=== PATIENT | female | born 1930 | race Caucasian/White ===

== ENCOUNTER 2017-03-06 06:15 | Day surgery (SDC) | payer MEDICARE, BC ==
[~2017-03-06] VITALS: Ht 165.1 cm; Wt 57.7 kg
[2017-03-06] VITALS (8 sets, daily range): BP systolic 118–193; BP diastolic 40–68; PULSE 66–80; TEMP 97.6–98.1
[~2017-03-06 06:15] MED LIST: CALCIUM600 M1 PO; CELEBREX 1100 MG/CAP PO; COUMADIN 5MG5 MG/TAB PO; DAILY VITAMIN1 TAB PO; DULCOLAX S10 MG/SUPP RC; FERROUS SU325 MG/TAB PO; FOLIC ACID 11 MG/TA1 PO; LOPRESSOR 550 MG/TAB PO; LOVENOX 4040 MG/0.4 SQ; MAALOX MAX + ANT1 ML PO; METHOTREXA50 MG/2 ML; METHOTREXATE50/2; MILK OF MA400 MG/52 PO; MIRALAX PA17 GM/Dose PO; NITROSTAT0.4 MG/TAB SL; NORCO 325 MG-101 TAB PO; NORCO 325 MG-7.1 TAB PO; ORENCIA125 MG/ML SC; ORENCIA250 MG IV; PRINIVIL20 MG PO; PROTONIX 40MG T40 MG PO; PROTONIX I40 MG/VIAL IV; REMICADE V100 MG/VIA; TOPROL XL 25MG25 MG PO; TYLENOL 325MG325 MG PO; ULTRAM 50MG TAB50 MG PO; XARELTO20 MG PO; ZESTRIL 5MG5 MG PO; ZOFRAN 4MG T4 MG/TAB PO; ZOFRAN INJ4 MG/2 ML IV
[2017-03-06] MEDS ORDERED: OTREXUP10 MG/0.4 SQ (07:10)
[2017-03-06] MEDS ORDERED: PRINIVIL10 MG PO (07:39)
[2017-03-06] MEDS ORDERED: PHENERGAN 25 TA25 MG PO (12:41)
[2017-03-06] MEDS ORDERED: NORCO 325 MG-7.1 TAB PO (12:41)
[2017-03-06] MEDS ORDERED: CEPHALEXIN500 M1 PO (12:42)
== END 2017-03-06 14:15 | disposition home or self-care (01) ==
LOC: SDCO 06:15
DX: G56.22 Lesion of ulnar nerve, left upper limb (principal); M19.022 Primary osteoarthritis, left elbow; M06.9 Rheumatoid arthritis, unspecified; Z87.891 Personal history of nicotine dependence
CPT/HCPCS: J0690; J2250; J2704; J2795; J3010; J7120